=== PATIENT | male | born 1960 | race Caucasian/White ===

== ENCOUNTER 2021-06-21 23:38 | Emergency (ER) | payer OTHER ==
[~2021-06-21 23:38] MED LIST: PERCOCET 5/325 T1 EA PO
[2021-06-22] MEDS ORDERED: Viscous Lidocaine 2% TOP (00:15)
[2021-06-22] MEDS ORDERED: CLINDAMYCIN HC300 MG PO (00:15)
[2021-06-22] MEDS ORDERED: IBUPROFEN600 MG PO (00:15)
== END 2021-06-22 00:29 | disposition home or self-care (01) ==
LOC: ER1 23:38
DX: G89.18 Other acute postprocedural pain (principal); K08.89 Other specified disorders of teeth and supporting structures; F17.210 Nicotine dependence, cigarettes, uncomplicated; I10 Essential (primary) hypertension; Z98.818 Other dental procedure status; Z88.0 Allergy status to penicillin
CPT/HCPCS: 99282

== ENCOUNTER → 2021-07-26 | Outpatient (CLI) | payer OTHER ==
[~2021-07-26] MED LIST changes: +CLINDAMYCIN HC300 MG PO; +IBUPROFEN600 MG PO; +Viscous Lidocaine 2% TOP
[2021-07-26 11:59] LABS: HEMOGLOBIN 15.7 gm/dl (14.0-17.5); RED BLOOD COUNT 5.18 M/UL (4.20-5.50); WHITE BLOOD COUNT 7.5 K/UL (4.5-11.0)
[2021-07-26 13:21] LABS: BUN/CREATININE RATIO 14 (0-10)
== END ==
LOC: LAB 11:28
PROVIDERS: Nurse Practitioner Family
DX: I10 Essential (primary) hypertension (principal); M54.2 Cervicalgia; M54.6 Pain in thoracic spine; M54.50 Low back pain, unspecified; G89.29 Other chronic pain; M47.812 Spondylosis without myelopathy or radiculopathy, cervical region; M47.814 Spondylosis without myelopathy or radiculopathy, thoracic region; M47.816 Spondylosis without myelopathy or radiculopathy, lumbar region
CPT/HCPCS: 72040; 72072; 72100; 80053; 80061; 83036; 85025

== ENCOUNTER 2021-10-07 19:02 | Emergency (ER) | payer OTHER ==
[2021-10-07] MEDS ORDERED: ZANAFLEX2 MG PO (22:12)
== END 2021-10-07 22:16 | disposition home or self-care (01) ==
LOC: ER1 19:02
DX: S43.421A Sprain of right rotator cuff capsule, initial encounter (principal); F17.210 Nicotine dependence, cigarettes, uncomplicated; I10 Essential (primary) hypertension; Z88.0 Allergy status to penicillin; W19.XXXA Unspecified fall, initial encounter; Y92.009 Unspecified place in unspecified non-institutional (private) residence as the place of occurrence of the external cause
CPT/HCPCS: 73030; 99283